=== PATIENT | female | born 2000 | race Caucasian/White ===

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

== ENCOUNTER 2021-02-22 15:13 | Emergency (ER) | payer OTHER, MEDICAID, SELFPAY ==
[2021-02-22 15:38] VITALS: BP 125/69; PULSE 83; RESP 18; TEMP 36.7; O2SAT 98; BMI 23.3
== END 2021-02-22 18:52 | disposition left against medical advice (07) ==
PROVIDERS: Emergency Provider Emergency Medicine
DX: H92.03 Otalgia, bilateral (principal)
CPT/HCPCS: 99281

== ENCOUNTER 2022-10-24 12:30 | Emergency (ER) | payer MEDICAID, SELFPAY ==
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
--- NOTE | ~2022-10-24 | XR_ITS ---
EXAMINATION: XR KNEE, LEFT CLINICAL INFORMATION: Left knee trauma, COMPARISON: None available. TECHNIQUE: Four views of the left knee including AP, lateral, oblique views. FINDINGS: Bones and soft tissues are normal. No fracture or joint effusion. Alignment is anatomic. Joint spaces are well maintained. No abnormal soft tissue calcification. XR/XR knee LT 3V IMPRESSION: Normal left knee.
[2022-10-24 12:46] VITALS: BP 120/86; PULSE 94; RESP 18; TEMP 36.4; O2SAT 96; BMI 27.5
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
[2022-10-24] MEDS: Diphth,Pertus(ACell),Tet Adult 0.5 ML SYRINGE IM (15:03)
== END 2022-10-24 16:17 | disposition home or self-care (01) ==
PROVIDERS: Emergency Provider Emergency Medicine; PCP Nurse Practitioner Primary Care
DX: S80.212A Abrasion, left knee, initial encounter (principal); S80.812A Abrasion, left lower leg, initial encounter; M79.641 Pain in right hand; W01.0XXA Fall on same level from slipping, tripping and stumbling without subsequent striking against object, initial encounter; Y93.9 Activity, unspecified; Y92.9 Unspecified place or not applicable; Y99.9 Unspecified external cause status; Z23 Encounter for immunization
CPT/HCPCS: 73120; 73562; 73590; 90471; 90715; 99282; 99284

== ENCOUNTER 2023-02-24 16:22 | Emergency (ER) | payer OTHER, SELFPAY ==
--- NOTE | ~2023-02-24 | XR_ITS ---
EXAMINATION: XR CHEST CLINICAL INFORMATION: Cough. COMPARISON: 10/26/2019. TECHNIQUE: 2 views of the chest were obtained. FINDINGS: The cardiomediastinal silhouette is normal. There is no focal lung consolidation or pleural effusion. The bony structures and soft tissues are unremarkable. XR/XR chest 2V IMPRESSION: No active cardiopulmonary disease.
--- NOTE | 2023-02-24 16:25 | ECG_ITS ---
Test Reason : CHEST PAIN Blood Pressure : / mmHG Vent. Rate : 094 BPM Atrial Rate : 094 BPM P-R Int : 126 ms QRS Dur : 090 ms QT Int : 360 ms P-R-T Axes : 069 058 017 degrees QTc Int : 450 ms Normal sinus rhythm with sinus arrhythmia RSR' or QR pattern in V1 suggests right ventricular conduction delay Borderline ECG No previous ECGs available Referred By: Generic ED Physician Electronically Signed By:SUPA SERNA
[2023-02-24 17:26] VITALS: BP 117/76; PULSE 93; RESP 18; TEMP 36.7; O2SAT 94; BMI 27.9
--- NOTE | 2023-02-24 17:26 | ED_ITS ---
HPI - General Adult General Chief complaint: Upper Respiratory Symptoms Stated complaint: chest pain,sob Time Seen by Provider: 02/24/23 18:04 Source: patient Mode of arrival: ambulatory Limitations: no limitations History of Present Illness HPI narrative: Patient otherwise healthy comes here with complaint of cough running nose fatigue for last 3 days her family friends were also sick last week . Patient has mostly dry cough with occasional mucopurulent phlegm no fever or chills no urinary cup Related Data Previous Rx's Medication Instructions Recorded ketorolac 10 mg tablet 10 mg PO TID PRN pain 5 days #7 09/27/20 tabs albuterol sulfate 90 mcg/actuation 2 puff inhalation Q4-6H PRN 02/24/23 aerosol inhaler (ProAir HFA) shortness of breath or wheezing #8.5 grams benzonatate 200 mg capsule 200 mg PO TID PRN cough #20 caps 02/24/23 cefuroxime axetil 500 mg tablet 500 mg PO BID 10 days #20 tabs 02/24/23 prednisone 20 mg tablet 40 mg (2 x 20 mg) PO DAILY #10 tabs 02/24/23 Allergies Allergy/AdvReac Type Severity Reaction Status Date / Time ibuprofen AdvReac Vomiting Verified 10/24/22 12:45 Review of Systems Review of Systems: Yes all other systems are reviewed and are negative PMFSH Past Medical History Medical History Seizure No known health problems Social History Social History Alcohol intake: current Alcohol intake frequency: holidays/special occasions only Smoked in Last 30 Days: No Use of substances other than those prescribed or required for medical reasons: Yes Substance Use Type: Marijuana Advance Directives: No Advance Directives Information Provided: No Patient : No Physical Exam ED Vital Signs: Vital Signs - 24 hr 02/24/23 17:26 02/24/23 18:06 02/24/23 18:06 Temperature 98.0 F 98.6 F Pulse Rate 93 82 Respiratory Rate 18 16 Blood Pressure 117/76 105/72 Pulse Oximetry 94 92 91 L Oxygen Delivery Method Room Air Room Air Room Air 02/24/23 18:44 02/24/23 19:35 Temperature 98.1 F Pulse Rate 71 81 Respiratory Rate 17 Blood Pressure 108/72 Pulse Oximetry 95 Oxygen Delivery Method Room Air BMI result Body Mass Index 27.9 Appearance: Alert. Oriented X3. No acute distress. ENT: Pharynx normal. Oral Mucosa moist Neck: Normal inspection. Neck supple. CVS: Normal heart rate and rhythm. Pulses normal. Respiratory: No respiratory distress. Equal air entry bilateral, bilateral wheezing Abdomen: Soft and nontender. Bowel sounds are present, Skin: Skin warm and dry. Normal skin color. Normal skin turgor. Neuro: Oriented X 3. Course Course Course Narrative: RME performed by Helena Wills PA-C. Patient is a 22 year old assigned female at , now male, presenting to the emergency department with chest pain / wheezing. Labs and swabs ordered. Patient placed back in the waiting room pending room availability and results. Medications Administered Discontinued Medications Generic Name Dose Route Start Last Admin Trade Name Freq PRN Reason Stop Dose Admin Albuterol Sulfate 4 puff 02/24/23 18:36 02/24/23 18:42 Albuterol Sulfate 90 Mcg 8 Gm Inhaler INHALE 02/24/23 18:37 4 puff ONCE ONE Administration Cefuroxime Axetil 500 mg 02/24/23 18:44 02/24/23 20:07 Cefuroxime Axetil 500 Mg Tablet PO 02/24/23 18:45 500 mg ONCE ONE Administration Dexamethasone 10 mg 02/24/23 18:44 02/24/23 20:07 Dexamethasone 2 Mg Tablet PO 02/24/23 18:45 10 mg ONCE ONE Administration Medical Decision Making Medical Decision Making [facility] Narrative: Patient has acute bronchitis COVID/flu/RSV negative chest x-ray negative [facility]aux patient home on antibiotic and prednisone and inhaler Differential Diagnosis Differential Diagnoses: The differential diagnosis associated with the presentation includes COVID/viral bronchitis/bacterial bronchitis/pneumonia Lab Data [facility] Lab Attestation statement: I reviewed the patient's lab results. Labs: Lab Results 02/24/23 Range/Units 17:47 Influenza Type A (PCR) NEGATIVE (Negative) Influenza Type B (PCR) NEGATIVE (Negative) RSV RNA Qual (PCR) NEGATIVE (Negative) SARS-CoV-2 RNA (RT-PCR) NEGATIVE (Negative) Discharge Plan Discharge Clinical Impression: Bronchitis Patient Disposition: Home, Self-Care Instructions: Acute Bronchitis (ED) Additional Instructions: Take antibiotic as prescribed Prednisone as prescribed Cough drops as prescribed Use albuterol inhaler 2 puffs every 4-6 hours as needed for wheezing Follow with PCP if not better Prescriptions: New prednisone 20 mg tablet 40 mg PO DAILY Qty: 10 0RF cefuroxime axetil 500 mg tablet 500 mg PO BID 10 Days Qty: 20 0RF albuterol sulfate [ProAir HFA] 90 mcg/actuation HFA aerosol inhaler 2 puff inhalation Q4-6H PRN (Reason: shortness of breath or wheezing) Qty: 8.5 0RF benzonatate 200 mg capsule 200 mg PO TID PRN (Reason: cough) Qty: 20 0RF No Action ketorolac 10 mg tablet 10 mg PO TID PRN (Reason: pain) 5 Days Qty: 7 0RF Rx Instructions: Do not use ibuprofen/Motrin with this medication, you may only use Tylenol if needed Stand Alone Forms: Work/School Release
[2023-02-24 18:06] VITALS: BP 105/72; PULSE 82; RESP 16; TEMP 37; O2SAT 91; O2SAT 92
--- NOTE | 2023-02-24 18:11 | PC.NURSE ---
pt a&ox3, vss and up to date.. pt comes in today d/t fatigue/SOB/nausea/cough/congestion 3 days ago. pt displays no SOB/WOB cassie. pt able to peak in full clear sentences w/o difficulty. inspiratory/expiratory wheezing noted upon auscultation. pt denies hx of asthma. [t states that her partner who is bedside got her sick. tech obtained labs and sent them. pt resting comfortably in no apparent distress. respirations even and unlabored. call kumar placed within reach.
[2023-02-24 18:30] LABS: Influenza A PCR NEGATIVE (Negative); Influenza B PCR NEGATIVE (Negative); Resp Syncy Virus RNA Qual PCR NEGATIVE (Negative); SARS COV2 PCR INHOUSE NEGATIVE (Negative)
[2023-02-24] MEDS: Albuterol Sulfate 90 MCG 8 GM INHALER 4 PUFF INHALE (18:42)
[2023-02-24 18:44] VITALS: PULSE 71; O2SAT 99
[2023-02-24 19:35] VITALS: BP 108/72; PULSE 81; RESP 17; TEMP 36.7; O2SAT 95
[2023-02-24] MEDS: dexAMETHasone 2 MG TABLET 10 MG PO (20:07)
== END 2023-02-24 20:20 | disposition home or self-care (01) ==
PROVIDERS: Physician Assistant Medical; Emergency Provider Internal Medicine; PCP Nurse Practitioner Primary Care
DX: J40 Bronchitis, not specified as acute or chronic (principal); Z20.822 Contact with and (suspected) exposure to COVID-19; Z20.828 Contact with and (suspected) exposure to other viral communicable diseases
CPT/HCPCS: 0241U; 71046; 93005; 94640; 99284; 99285; J8540

== ENCOUNTER 2023-12-03 14:14 | Emergency (ER) | payer MEDICAID, SELFPAY ==
--- NOTE | 2023-12-03 14:26 | ED_ITS ---
HPI - General Adult General Stated complaint: covid test Time Seen by Provider: 12/03/23 14:32 Source: patient Mode of arrival: ambulatory Limitations: no limitations History of Present Illness ED Provider: SHAYAN Fajardo HPI narrative: 23 year old transgender male presents requesting covid testing. Brother was + for covid. Work requested they come in for testing. Deneis cough, fevers, chill s, cp, sob, nausea, vomiting, fatigue, malaise, myalgias Related Data Previous Rx's ?Medication ?Instructions ?Recorded ketorolac 10 mg tablet 10 mg PO TID PRN pain 5 days #7 09/27/20 tabs albuterol sulfate 90 mcg/actuation 2 puff inhalation Q4-6H PRN 02/24/23 aerosol inhaler (ProAir HFA) shortness of breath or wheezing #8.5 grams benzonatate 200 mg capsule 200 mg PO TID PRN cough #20 caps 02/24/23 cefuroxime axetil 500 mg tablet 500 mg PO BID 10 days #20 tabs 02/24/23 prednisone 20 mg tablet 40 mg (2 x 20 mg) PO DAILY #10 tabs 02/24/23 Allergies Allergy/AdvReac Type Severity Reaction Status Date / Time ibuprofen AdvReac Vomiting Verified 10/24/22 12:45 Review of Systems Review of Systems: Yes all other systems are reviewed and are negative PMFSH Past Medical History Attestation statement: The following information was validated with the patient. Source: old records reviewed and nursing notes reviewed Medical History Seizure No known health problems Social History Social History Alcohol intake: current Alcohol intake frequency: holidays/special occasions only Substance Use Type: Marijuana Physical Exam ED Vital Signs: vss Appearance: Alert.? Oriented X3.? No acute distress.? Head: Normocephalic, atraumatic, no step-offs or deformities Eyes: Pupils equal, round and reactive to light.? Neck: Normal inspection.? Neck supple.? CVS: Normal heart rate and rhythm.? Pulses normal.? Respiratory: No respiratory distress.? Breath sounds normal.? Skin: Skin warm and dry.? Normal skin color.? Normal skin turgor.? Extremities: 5/5 strength to bilateral upper and lower extremities Neuro: Oriented X 3.? No motor deficit.? No sensory deficit. CN 2-12 intact Course Course Course Narrative: This is an RME done by SHAYAN Fajardo: Additional HPI, ROS, PE not included below will be deferred to primary provider. Medical Decision Making Medical Decision Making [facility] Narrative: 23 yo f to male transgender presents requesting covid testing pe benign will rule out flu and covid. Plan dc home Differential Diagnosis Differential Diagnoses: The differential diagnosis associated with the presentation includes will rule out flu and covid. Admission/Observation Consideration of admission/observation: Escalation of care including admission/observation considered [facility] External Record Review External record reviewed: Outpatient record and Prior outpatient radiology Discharge Plan Discharge Clinical Impression: Viral illness Patient Disposition: Home, Self-Care Instructions: Viral Syndrome (ED) Additional Instructions: Take your medications as prescribed. If you were prescribed antibiotics today, it is important that you take your medication to their entirety, do not skip any doses, do not finish them early. Follow-up with your primary care provider this week. Return to the emergency department with new or worsening symptoms. In case of emergency call 911 Prescriptions: No Action ketorolac 10 mg tablet 10 mg PO TID PRN (Reason: pain) 5 Days Qty: 7 0RF Rx Instructions: Do not use ibuprofen/Motrin with this medication, you may only use Tylenol if needed prednisone 20 mg tablet 40 mg PO DAILY Qty: 10 0RF cefuroxime axetil 500 mg tablet 500 mg PO BID 10 Days Qty: 20 0RF albuterol sulfate [ProAir HFA] 90 mcg/actuation HFA aerosol inhaler 2 puff inhalation Q4-6H PRN (Reason: shortness of breath or wheezing) Qty: 8.5 0RF benzonatate 200 mg capsule 200 mg PO TID PRN (Reason: cough) Qty: 20 0RF Referrals: Christiana Villalobso EXPERIMENTAL PREFLIGHT MECHANIC [Primary Care Provider] - 2 days Stand Alone Forms: Work/School Release Print Language: Dutch
[2023-12-03 14:37] VITALS: BP 109/69; PULSE 87; RESP 16; TEMP 36.5; O2SAT 98; BMI 26.6
[2023-12-03 14:49] VITALS: BP 109/69; PULSE 87; RESP 16; TEMP 36.5; O2SAT 98
[2023-12-03 15:13] LABS: COVID-19 Test Negative (Negative); IDNOW Serial# 08D9AD1C; IDNOW Serial# 152EDE1D; Influenza A Negative (Negative); Influenza B2 Negative (Negative)
== END 2023-12-03 14:52 | disposition home or self-care (01) ==
PROVIDERS: Physician Assistant; Emergency Provider Emergency Medicine; PCP Nurse Practitioner Primary Care
DX: B34.9 Viral infection, unspecified (principal); Z03.818 Encounter for observation for suspected exposure to other biological agents ruled out
CPT/HCPCS: 87502; 87635; 99282; 99283

== ENCOUNTER 2024-07-05 22:15 | Emergency (ER) | payer SELFPAY ==
[2024-07-05 23:06] VITALS: BP 121/79; PULSE 95; RESP 20; TEMP 36.9; O2SAT 97; BMI 30.9
[2024-07-06 00:46] VITALS: BP 141/82; PULSE 92; RESP 16; TEMP 36.2; O2SAT 97
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
[2024-07-06 02:05] VITALS: BP 119/82; PULSE 80; RESP 16; TEMP 36.4; O2SAT 97
[2024-07-06 02:10] VITALS: BP 119/82; PULSE 80; RESP 16; TEMP 36.4; O2SAT 97
== END 2024-07-06 02:12 | disposition home or self-care (01) ==
PROVIDERS: Emergency Provider Emergency Medicine Emergency Medical Services; PCP Nurse Practitioner Primary Care
DX: S09.90XA Unspecified injury of head, initial encounter (principal); R51.9 Headache, unspecified; Y29.XXXA Contact with blunt object, undetermined intent, initial encounter; Y93.9 Activity, unspecified; Y92.9 Unspecified place or not applicable; Y99.8 Other external cause status
CPT/HCPCS: 99282; 99284

== ENCOUNTER 2024-07-13 20:05 | Emergency (ER) | payer OTHER, SELFPAY ==
--- NOTE | ~2024-07-13 | XR_ITS ---
CLINICAL HISTORY: coughing 1 view chest x-ray Comparison: 02/24/2023 Findings: Right basilar subsegmental atelectatic changes. Lungs are otherwise clear. Normal size heart. No acute fracture. IMPRESSION: 1. No acute findings. This document has been electronically signed by: Marlene Lara MD on 07/13/2024 21:00:38
[2024-07-13 20:20] VITALS: BP 123/77; PULSE 100; RESP 17; TEMP 36.6; O2SAT 98; BMI 27.2
--- NOTE | 2024-07-13 20:24 | ED.GENADULT ---
HPI - General Adult General Chief complaint: Upper Respiratory Symptoms Stated complaint: Asthma History of Present Illness HPI narrative: Patient left before completion of treatment by ED provider Related Data Previous Rx's ?Medication ?Instructions ?Recorded ketorolac 10 mg tablet 10 mg PO TID PRN pain 5 days #7 09/27/20 tabs albuterol sulfate 90 mcg/actuation 2 puff inhalation Q4-6H PRN 02/24/23 aerosol inhaler (ProAir HFA) shortness of breath or wheezing #8.5 grams benzonatate 200 mg capsule 200 mg PO TID PRN cough #20 caps 02/24/23 cefuroxime axetil 500 mg tablet 500 mg PO BID 10 days #20 tabs 02/24/23 prednisone 20 mg tablet 40 mg (2 x 20 mg) PO DAILY #10 tabs 02/24/23 Allergies Allergy/AdvReac Type Severity Reaction Status Date / Time ibuprofen AdvReac Vomiting Verified 07/13/24 20:23 PMFSH Past Medical History Medical History Seizure No known health problems Social History Social History Alcohol intake: current Alcohol intake frequency: does not drink Substance Use Type: Marijuana Advance Directives: No Advance Directives Information Provided: No Do you have a plan to hurt others: No Plan Physical Exam ED Vital Signs: Vital Signs - 24 hr 07/13/24 20:20 07/13/24 23:57 Temperature 97.8 F 98.8 F Pulse Rate 100 100 Respiratory Rate 17 18 Blood Pressure 123/77 136/89 Pulse Oximetry 98 96 Oxygen Delivery Method Room Air Room Air BMI result Body Mass Index 27.2 Course Course Course Narrative: RME: 23-year-old female presents to ED for URI symptoms. Patient states coughing nasal congestion nausea and vomiting. SARs strep chest x-ray ordered Medications Administered Discontinued Medications Generic Name Dose Route Start Last Admin Trade Name Freq PRN Reason Stop Dose Admin Acetaminophen 650 mg 07/13/24 23:57 07/13/24 23:59 Acetaminophen 325 Mg Tablet PO 07/13/24 23:58 650 mg ONCE ONE Administration Medical Decision Making Lab Data Labs: Lab Results 07/13/24 Range/Units 20:27 Influenza Type A (PCR) NEGATIVE (Negative) Influenza Type B (PCR) NEGATIVE (Negative) RSV RNA Qual (PCR) NEGATIVE (Negative) SARS-CoV-2 RNA (RT-PCR) POSITIVE A (Negative) S. pyogenes GrpA GLADIS Negative (Negative) Discharge Plan Discharge Clinical Impression: Upper respiratory infection Patient Disposition: Left W/O Completing Treatment Prescriptions: No Action ketorolac 10 mg tablet 10 mg PO TID PRN (Reason: pain) 5 Days Qty: 7 0RF Rx Instructions: Do not use ibuprofen/Motrin with this medication, you may only use Tylenol if needed prednisone 20 mg tablet 40 mg PO DAILY Qty: 10 0RF cefuroxime axetil 500 mg tablet 500 mg PO BID 10 Days Qty: 20 0RF albuterol sulfate [ProAir HFA] 90 mcg/actuation HFA aerosol inhaler 2 puff inhalation Q4-6H PRN (Reason: shortness of breath or wheezing) Qty: 8.5 0RF benzonatate 200 mg capsule 200 mg PO TID PRN (Reason: cough) Qty: 20 0RF Discharge Date/Time: 07/14/24 00:42
[2024-07-13 20:40] LABS: IDNOW Serial# 6674DD1D; Strep A Nucleic Acid Negative (Negative)
[2024-07-13 21:56] LABS: Influenza A PCR NEGATIVE (Negative); Influenza B PCR NEGATIVE (Negative); Resp Syncy Virus RNA Qual PCR NEGATIVE (Negative); SARS COV2 PCR INHOUSE POSITIVE (Negative)
[2024-07-13 23:57] VITALS: BP 136/89; PULSE 100; RESP 18; TEMP 37.1; O2SAT 96
[2024-07-13] MEDS: Acetaminophen 325 MG TABLET 650 MG PO (23:59)
== END 2024-07-14 00:42 | disposition left against medical advice (07) ==
PROVIDERS: Physician Assistant; Emergency Provider Emergency Medicine; PCP Nurse Practitioner Primary Care
DX: J06.9 Acute upper respiratory infection, unspecified (principal); R05.9 Cough, unspecified; Z03.818 Encounter for observation for suspected exposure to other biological agents ruled out
CPT/HCPCS: 0241U; 71045; 87651; 99282; 99283

== ENCOUNTER → 2024-07-13 20:23 | Outpatient (BNV) | payer OTHER, SELFPAY | PROVIDERS: PCP Nurse Practitioner Primary Care; Visit Provider Student in an Organized Health Care Education/Training Program | DX: J98.11 Atelectasis (principal) | CPT/HCPCS: 71045 ==